=== PATIENT | female | born 2000 | race Caucasian/White ===

== ENCOUNTER 2025-04-29 10:23 | Emergency (ER) | payer MEDICAID, SELFPAY ==
[2025-04-29 10:35] VITALS: BP 121/79; PULSE 65; RESP 18; TEMP 36.7; O2SAT 98; BMI 21.1
--- NOTE | 2025-04-29 11:18 | ED_ITS ---
HPI - General Adult General Date Seen: 04/29/25 Chief complaint: Dental/Oral/Mouth Injury/Pain Stated complaint: Nausea, vomiting, sore throat Time Seen by Provider: 04/29/25 11:01 History of Present Illness HPI narrative: Patient is a 25-year-old young woman brought in by her mom today for evaluation of tooth pain, nausea and vomiting. Patient has been in treatment this year for alcohol, in September. She now lives in a sober house. She has a broken tooth in t he right lower jaw which has given her trouble in the past, has been bothering her for the past month or so. Over the past couple of days the pain has gotten worse. She has also developed vomiting over the past couple of days. She is not certain whether that is related to the tooth pain or a separate issue. She does not have abdominal pain. She remains sober, she has Zofran which was prescribed to her when she was in the treatment center and she took 1 yesterday. Her last emesis was yesterday but she says she has vomited 6 or 7 times in total and remains nauseated. No fevers, no facial swelling. No urinary symptoms. Related Data Home Medications ?Medication ?Instructions ?Recorded ?Confirmed clonidine HCl .ROUTE 04/29/25 Allergies Allergy/AdvReac Type Severity Reaction Status Date / Time No Known Drug Allergies Allergy Verified 04/29/25 10:35 Review of Systems Status of ROS: Reports: 10 or more systems reviewed and unremarkable except as noted in History and below PFSH PFS Social History Smoking Status: Never smoker Do you use any of these nicotine containing products: None Second hand tobacco smoke exposure: No How often do you have a drink containing alcohol: never AUDIT-C Alcohol total score: 0 Non-prescribed substance use: denies use Exam Narrative: Exam Narrative: Vital signs reviewed In general, alert, nontoxic Head: Normocephalic, atraumatic. Eyes: Sclera clear. Pupils equal and reactive. ENT: Mucous membranes dry. She has a tooth that is broken off basically at the gum line and the right lower jaw, there is no surrounding edema or fluctuance. No facial swelling or erythema. Airway patent. Neck: Supple without adenopathy. Heart: Regular rate and rhythm without murmur. Lungs: Clear. No increased work of breathing, crackles or wheezes. Abdomen: Soft, nontender to palpation. Extremities: Well perfused, pulses intact. No significant edema. Neurologic: Alert, conversant. Speech fluent, face symmetric. Moves all extremities equally. Skin: Warm, dry well perfused. Affect: Flat. Const: Vital Signs, click to edit/add: Vital Signs - 24 hr 04/29/25 10:35 Temperature 98.1 F Pulse Rate [Pulse Oximeter] 65 Respiratory Rate 18 Blood Pressure [Ri ght Upper Arm] 121/79 Pulse Oximetry 98 Oxygen Delivery Me thod Room Air Course Course ED Course: Patient presents with acute on chronic tooth pain, reviewed that we can certainly start an antibiotic for this but overall she needs to see a dentist. It sounds like getting a ride as well as knowing where to go have been leija rdships, but she does tell me that she has a list of dental clinics. Reviewed options in terms of local verses sliding scale clinics in the [facility]. Her mom lives in [place], and would be willing to take her to appointments. With regard to the nausea and vomiting, will check some basic labs, give some fluids and Reglan here, abdomen is benign, vital signs are normal. Symptoms may be related to tooth pain, other diagnostic considerations would be of viral gastroenteritis, pancreatitis, hepatitis, , doubt a surgical cause such as appendicitis in the absence any abdominal pain or tenderness. Labs reviewed. Urinalysis is notable for 4+ ketones, 1+ protein 1+ urine bilirubin 5-10 red cells but no white cells. test is negative. Blood work is most notable for significant elevations in her transaminases with an AST of 680, ALT of 875. This is most likely due related to her alcohol history, but I did add on a hepatitis panel and will get an ultrasound to make sure there are no other concerning findings that need to be addressed. In the meantime, she is feeling improved after fluids and Reglan. Lipase is normal, alk-phos is normal. Ultrasound read by Radiology is negative. I discussed all these findings with her. We made her a follow-up appointment in clinic to have her LFTs recheck. Reviewed reasons to return such as jaundice, uncontrolled vomiting, significant abdominal pain or high fevers, otherwise I prescribed amoxicillin, she will need dental follow-up. Advised against use of Tylenol until we ensure that her liver is improving. Vital Signs Vital signs: Initial Vital Signs Temperature 98.1 F 04/29/25 10:35 Temperature Source Temporal Artery Scan 04/29/25 10:35 Pulse Rate 65 04/29/25 10:35 Respiratory Rate 18 04/29/25 10:35 Blood Pressure 121/79 04/29/25 10:35 Blood Pressure Mean 93 04/29/25 10:35 Blood Pressure Position Sitting 04/29/25 10:35 Pulse Oximetry 98 04/29/25 10:35 Oxygen Delivery Method Room Air 04/29/25 10:35 Vital Signs Temperature 98.1 F 04/29/25 10:35 Pulse Rate 65 04/29/25 10:35 Respiratory Rate 18 04/29/25 10:35 Blood Pressure 121/79 04/29/25 10:35 Pulse Oximetry 98 04/29/25 10:35 Oxygen Delivery Method Room Air 04/29/25 10:35 Temperature 98.1 F 04/29/25 10:35 Pulse Rate 65 04/29/25 10:35 Respiratory Rate 18 04/29/25 10:35 Blood Pressure 121/79 04/29/25 10:35 Pulse Oximetry 98 04/29/25 10:35 Oxygen Delivery Method Room Air 04/29/25 10:35 Medications Administered Medications: Discontinued Medications Generic Name Dose Route Start Last Admin Trade Name Freq PRN Reason Stop Dose Admin Sodium Chloride 1,000 mls @ 1,000 mls/hr 04/29/25 11:15 04/29/25 13:07 0.9 % Sodium Chloride 1000 Ml IV 04/29/25 12:14 Infused .Q1H RENATO Infusion Metoclopramide HCl 10 mg/ 102 mls @ 306 mls/hr 04/29/25 11:12 04/29/25 13:08 Sodium Chloride IVPB 04/29/25 11:13 Infused ONCE ONE Infusion Medical Decision Making Lab Data Labs: Lab Results 04/29/25 Range/Units 11:41 WBC 6.59 (4.50-11.00) K/uL RBC 4.10 (4.00-5.20) m/uL Hgb 11.0 L (12.0-16.0) gm/dL Hct 34.4 (33.0-51.0) % MCV 84 (80-100) fL MCH 27 (26-34) pg MCHC 32 (32-36) gm/dL RDW Coeff of Conchita 16.1 H (11.5-15.5) % Plt Count 284 (140-440) K/uL Neut % (Auto) 80.0 H (42.0-72.0) % Lymph % (Auto) 15.0 L (20-44) % [place] % (Auto) 3.6 (0.0-11.0) % Eos % (Auto) 0.3 (0.0-7.0) % Baso % (Auto) 0.6 (0.0-3.0) % Neut # (Auto) 5.30 (1.7-7.0) K/uL Lymph # (Auto) 1.00 (0.90-2.90) K/uL [place] # (Auto) 0.20 (0.00-0.90) K/UL Eos # (Auto) 0.02 (0.00-0.50) K/uL Baso # (Auto) 0.04 (0.00-0.30) K/uL Abs Immat Gran (auto) 0.03 (0.00-0.30) K/uL Imm/Tot Granulo (auto) 0.5 % Sodium 135 (135-149) mmol/L Potassium 3.3 L (3.6-5.1) mmol/L Chloride 101 (96-114) mmol/L Carbon Dioxide 20 (20-32) mmol/L Anion Gap 14 (7-15) mEq/L BUN 6 (5-24) mg/dL Creatinine 0.4 L (0.5-1.5) mg/dL Estimated Creat Clear 185.66 Estimated GFR 141 ml/min Glucose 109 (60-115) mg/dL Calcium 8.3 L (8.4-10.6) mg/dL Total Bilirubin 0.6 (0.1-1.5) mg/dL Direct Bilirubin 0.3 (0.0-0.5) mg/dL AST 680 H (12-35) U/L ALT 875 H (4-35) U/L Alkaline Phosphatase 65 (40-150) U/L Total Protein 6.9 (6.0-8.3) g/dL Albumin 4.2 (3.3-5.0) g/dL Lipase 74 (23-300) U/L Urine Color Yellow (Yellow) Urine Appearance Clear (Clear) Urine pH 5.5 (5.0-8.5) Ur Specific Linch 1.020 (1.000-1.030) Urine Protein 1+ A (Negative) Urine Glucose (UA) Negative (Negative) Urine Ketones 4+ A (Negative) Urine Blood Trace-intact A (Negative) Urine Nitrite Negative (Negative) Urine Bilirubin 1+ A (Negative) Urine Urobilinogen 0.2 (0.2-1.0) Ur Leukocyte Esterase Negative (Negative) Urine RBC 5-10 A (0-2) Urine WBC 0-2 (0-5) Ur Squamous Epith Cells Few (None-Few) Urine Bacteria Few A (None) Urine HCG, Qual Negative (Negative) Discharge Plan Discharge Clinical Impression: Hepatitis, Toothache Patient Disposition: Home, Self-Care Condition: Improved Instructions: Toothache (ED), Transaminitis (ED) Additional Instructions: Nausea/vomiting: I think the symptoms are most likely due to some inflammation of your liver. There is viral testing for hepatitis which is pending, this is a send out lab and will take a couple of days to return. We will call you if anything needs to be addressed. Your ultrasound is normal. Most likely, these findings are related to your prior alcohol use, as alcohol is highly toxic to the liver. Continue to abstain from all alcohol. I would like it to be seen in a primary care clinic early next week to make sure that your liver enzymes are improving. If at any time use developed significant abdominal pain, high fevers, uncontrolled vomiting, yellowing of your skin or eyes, return to the emergency department. You can use Zofran if needed for nausea. Tooth pain: There is no sign of current infection. I will start you on an antibiotic, but as we discussed, dental follow-up will be extremely important to resolving this issue. If you note swelling in your face, redness along her jaw, or other worsening, return to the emergency department. You can use ibuprofen, ice as needed for pain. I would avoid Tylenol as this can also stress your liver. Prescriptions: No Action clonidine HCl .ROUTE Follow Up/Referrals: Provider,Not a Local [Primary Care Provider, Family Practice] Stand Alone Forms: [employer] Info Instructions
[2025-04-29] MEDS: METOCLOPRAMIDE HCL 10 MG in 0.9 % SODIUM CHLORIDE 100 ml 100 ML 306 MG IVPB (11:48)
[2025-04-29 11:57] LABS: Appearance Urine Clear (Clear)
[2025-04-29 12:03] LABS: Hematocrit* 34.4 % (33.0-51.0); Hemoglobin* 11.0 gm/dL (12.0-16.0); Immature Granulocytes Abs Auto 0.03 K/uL (0.00-0.30); Immature Granulocytes Pct Auto 0.5 %; Mean Corpuscular HGB Conc 32 gm/dL (32-36); Mean Corpuscular Hemoglobin 27 pg (26-34); Mean Corpuscular Volume 84 fL (80-100); RDW Coefficient of Variation % 16.1 % (11.5-15.5); Red Blood Count* 4.10 m/uL (4.00-5.20); White Blood Count* 6.59 K/uL (4.50-11.00)
[2025-04-29 12:09] LABS: Lymphocytes Absolute Auto 1.00 K/uL (0.90-2.90); Slide Review Reflex No
[2025-04-29 12:17] LABS: Albumin* 4.2 g/dL (3.3-5.0); Chloride* 101 mmol/L (96-114)
[2025-04-29 12:18] LABS: Potassium* 3.3 mmol/L (3.6-5.1)
[2025-04-29 12:20] LABS: Aspartate Amino Transferase* 680 U/L (12-35); Blood Urea Nitrogen* 6 mg/dL (5-24); Calcium* 8.3 mg/dL (8.4-10.6); Carbon Dioxide* 20 mmol/L (20-32); Creatinine* 0.4 mg/dL (0.5-1.5); Est. Creatinine Clearance* 185.66; Estimated Glomerular Filt Rate 141 ml/min; Glucose* 109 mg/dL (60-115); Total Protein* 6.9 g/dL (6.0-8.3)
[2025-04-29 12:21] LABS: Alkaline Phosphatase* 65 U/L (40-150); Bilirubin Direct* 0.3 mg/dL (0.0-0.5); Bilirubin Total* 0.6 mg/dL (0.1-1.5)
[2025-04-29 12:28] LABS: Alanine Aminotransferase* 875 U/L (4-35)
--- NOTE | 2025-04-29 12:34 | CRLHL7_ITS ---
For Patients: As a result of the Century Cures Act, medical imaging exams and procedure reports are released immediately into your electronic medical record. You may view this report before your referring provider. If you have questions, please contact your health care provider. INDICATION: Vomiting, elevated transaminase TECHNIQUE: Ultrasound abdomen limited. Sonographic images of the right upper quadrant were obtained using chowdhury-scale and color Doppler images. COMPARISON: None FINDINGS: Liver: Normal in size and echotexture. No masses. No intrahepatic biliary dilatation. Gallbladder: No stones or sludge. Normal wall thickness. No pericholecystic fluid. Common bile duct: 2 mm. Pancreas: Normal. Right kidney: Normal in size. Normal echotexture and cortex. No masses, stones, or hydronephrosis. Vasculature: Proximal abdominal aorta and IVC are normal. IMPRESSION: Unremarkable right upper quadrant ultrasound. Dictated by Gurpreet Ron MD @ 04/29/2025 1:20:41 PM (Electronically Signed)
[2025-04-29 12:36] LABS: Anion Gap 14 mEq/L (7-15); Sodium* 135 mmol/L (135-149)
[2025-04-29 12:50] LABS: Ur HCG Qualitative* Negative (Negative)
== END 2025-04-29 13:42 | disposition home or self-care (01) ==
PROVIDERS: Emergency Provider Emergency Medicine
DX: K08.89 Other specified disorders of teeth and supporting structures (principal); K75.9 Inflammatory liver disease, unspecified
CPT/HCPCS: 36415; 76705; 80048; 80074; 80076; 81001; 81025; 83690; 85025; 87086; 96365; 99284; 99285; J2765; J7030

== ENCOUNTER 2025-05-04 14:10 | Outpatient (CLI) | payer MEDICAID, SELFPAY | END 2025-05-04 14:11 | disposition home or self-care (01) | PROVIDERS: PCP Family Medicine; Visit Provider Family Medicine | DX: R79.89 Other specified abnormal findings of blood chemistry (principal) | CPT/HCPCS: 80053; 80143; 86703; 86706; 86708; 86803; 87340 ==

== ENCOUNTER 2025-06-03 13:26 | Emergency (ER) | payer MEDICAID, SELFPAY ==
[2025-06-03 13:50] VITALS: BP 123/83; PULSE 78; RESP 18; TEMP 37.4; O2SAT 98
--- NOTE | 2025-06-03 14:40 | ED.GENADULT ---
HPI - General Adult General Time Seen by Provider: 14:40 <Fahad White MD - Last Filed: 06/03/25 14:40> Date Seen: 06/03/25 <Fahad White MD - Last Filed: 06/03/25 14:40> Chief complaint: Dental/Oral/Mouth Injury/Pain <Fahad White MD - Last Filed: 06/03/25 14:40> Stated complaint: Tooth pain <Fahad White MD - Last Filed: 06/03/25 14:40> Time Seen by Provider: 06/03/25 13:29 <Fahad White MD - Last Filed: 06/03/25 14:40> Source: patient <Fahad White MD - Last Filed: 06/03/25 14:40> patient <Octavio Jolely DO - Last Filed: 06/03/25 14:59> Mode of arrival: ambulatory <Fahad White MD - Last Filed: 06/03/25 14:40> ambulatory <Octavio Jolley DO - Last Filed: 06/03/25 14:59> Limitations: no limitations <Fahad White MD - Last Filed: 06/03/25 14:40> no limitations <Octavio Jolley DO - Last Filed: 06/03/25 14:59> History of Present Illness HPI narrative: Isamar is 25-year-old female with depression and anxiety, chronic anemia, history of previous alcoholism abnormal liver function test presents emerged department via private car and self with dental pain. <Fahad White MD - Last Filed: 06/03/25 14:40> Isamar is 25-year-old female with depression and anxiety, chronic anemia, history of previous alcoholism abnormal liver function test presents emerged department via private car and self with dental pain. She states she has been having dental pain for the past few days. Has been taking Advil at home without improvement in her symptoms. Is to number 28 that is causing her pain. She states the pain is on top of the tooth. This is the same pain she had back in April. Was given amoxicillin which she states improved her symptoms. She has been trying to get into the dentist was unable to get an appointment until next week. Denies fevers, chills, chest pain, shortness of breath, abdominal pain, diarrhea, constipation. No other concerns noted at this time <Octavio Jolley DO - Last Filed: 06/03/25 14:59> Related Data Home medications: Home Medications ?Medication ?Instructions ?Recorded ?Confirmed amoxicillin 500 mg capsule 500 mg PO TID 05/04/25 05/04/25 clonidine HCl 0.1 mg 0.1 mg PO QPM 05/04/25 05/04/25 tablet,extended release,12 hr naltrexone 50 mg tablet 100 mg PO DAILY 05/04/25 05/04/25 <Fahad White MD - Last Filed: 06/03/25 14:40> Allergies/adverse reactions: Allergies Allergy/AdvReac Type Severity Reaction Status Date / Time No Known Drug Allergies Allergy Verified 05/04/25 13:20 <Fahad White MD - Last Filed: 06/03/25 14:40> Review of Systems Status of ROS: Reports: 10 or more systems reviewed and unremarkable except as noted in History and below <Octavio Jolley DO - Last Filed: 06/03/25 14:59> [facility] Medical History: Medical History Drug abuse ?F19.10 - Other psychoactive substance abuse, uncomplicated (ICD-10) History of cardiac murmur ?Z86.79 - Personal history of other diseases of the circulatory system (ICD-10) <Fahad White MD - Last Filed: 06/03/25 14:40> Social History: Social History What is your current living situation?: I presently have a place to live Problems where you live: no known problems In the past 12 months, utilities in danger of being shut off: no In past 12 months, lack of transportation kept you from medical appts, meetings, work, or getting things needed for daily living: yes In the past 12 mos, have been you worried that your food would run out before you had money to buy more?: sometimes true In the past 12 mos, the food you bought just didn't last and you didn't have money to buy more?: sometimes true Smoking Status: Never smoker Do you use any of these nicotine containing products: None Second hand tobacco smoke exposure: No How often do you have a drink containing alcohol: never AUDIT-C Alcohol total score: 0 Non-prescribed substance use: denies use How often does anyone, including family, friends and others, physically hurt you: never How often does anyone, including family, friends and others, insult or talk down to you: never How often does anyone, including family, friends and others, threaten you with harm: never How often does anyone, including family, friends and others, scream or curse at you: never Health Related Social Needs: food insecurity (Z59.41) and transportation insecurity (Z59.82) <Fahad White MD - Last Filed: 06/03/25 14:40> Exam Narrative: Exam Narrative: Const: Well-nourished, Well-developed, in mild distress Eyes: PERRL, no conjunctival injection, and symmetrical lids HENT: Atraumatic external nose and ears. Moist mucous membranes. Poor dentition. Multiple cavities. Does appear to have a cavity on the tooth in question. Mild tenderness noted around the gums. No signs of abscess. MSK:Extremities w/o deformity, Normal Active ROM Skin: Warm, Dry. No rashes or lesions. Neuro: Normal Muscle tone, No focal neurological deficits. Psych: Awake, Alert, & Oriented x3. Appropriate mood and affect. <Octavio Jolley DO - Last Filed: 06/03/25 14:59> Const: Vital Signs, click to edit/add: Vital Signs - 24 hr 06/03/25 13:50 Temperature 99.3 F Pulse Rate [Pulse Oximeter] 78 Respiratory Rate 18 Blood Pressure [Ri ght Upper Arm] 123/83 Pulse Oximetry 98 Oxygen Delivery Me thod Room Air <Fahad White MD - Last Filed: 06/03/25 14:40> Vital Signs, click to edit/add: Vital Signs - 24 hr 06/03/25 13:50 Temperature 99.3 F Pulse Rate [Pulse Oximeter] 78 Respiratory Rate 18 Blood Pressure [Ri ght Upper Arm] 123/83 Pulse Oximetry 98 Oxygen Delivery Me thod Room Air <Octavio Jolley DO - Last Filed: 06/03/25 14:59> Course Vital Signs Vital signs: Initial Vital Signs Temperature 99.3 F 06/03/25 13:50 Temperature Source Temporal Artery Scan 06/03/25 13:50 Pulse Rate 78 06/03/25 13:50 Respiratory Rate 18 06/03/25 13:50 Blood Pressure 123/83 06/03/25 13:50 Blood Pressure Mean 96 06/03/25 13:50 Pulse Oximetry 98 06/03/25 13:50 Oxygen Delivery Method Room Air 06/03/25 13:50 Vital Signs Temperature 99.3 F 06/03/25 13:50 Pulse Rate 78 06/03/25 13:50 Respiratory Rate 18 06/03/25 13:50 Blood Pressure 123/83 06/03/25 13:50 Pulse Oximetry 98 06/03/25 13:50 Oxygen Delivery Method Room Air 06/03/25 13:50 Temperature 99.3 F 06/03/25 13:50 Pulse Rate 78 06/03/25 13:50 Respiratory Rate 18 06/03/25 13:50 Blood Pressure 123/83 06/03/25 13:50 Pulse Oximetry 98 06/03/25 13:50 Oxygen Delivery Method Room Air 06/03/25 13:50 <Fahad White MD - Last Filed: 06/03/25 14:40> Initial Vital Signs Temperature 99.3 F 06/03/25 13:50 Temperature Source Temporal Artery Scan 06/03/25 13:50 Pulse Rate 78 06/03/25 13:50 Respiratory Rate 18 06/03/25 13:50 Blood Pressure 123/83 06/03/25 13:50 Blood Pressure Mean 96 06/03/25 13:50 Pulse Oximetry 98 06/03/25 13:50 Oxygen Delivery Method Room Air 06/03/25 13:50 Vital Signs Temperature 99.3 F 06/03/25 13:50 Pulse Rate 78 06/03/25 13:50 Respiratory Rate 18 06/03/25 13:50 Blood Pressure 123/83 06/03/25 13:50 Pulse Oximetry 98 06/03/25 13:50 Oxygen Delivery Method Room Air 06/03/25 13:50 Temperature 99.3 F 06/03/25 13:50 Pulse Rate 78 06/03/25 13:50 Respiratory Rate 18 06/03/25 13:50 Blood Pressure 123/83 06/03/25 13:50 Pulse Oximetry 98 06/03/25 13:50 Oxygen Delivery Method Room Air 06/03/25 13:50 <Octavio Jolley DO - Last Filed: 06/03/25 14:59> Medical Decision Making MDM Narrative Medical decision making narrative: Patient is a 25-year-old female presenting for tooth pain. She appears to have a cavity under to impression. This appears to be 28 but hard to say definitively due to poor dentition and other missing teeth. Considering amoxicillin helped slightly vaccine symptoms before will prescribe amoxicillin again. Do not believe further workup is necessary. She will be discharged. Amoxicillin prescribed via [facility]eds <Octavio Jolley DO - Last Filed: 06/03/25 14:59> Discharge Plan Discharge Clinical Impression: Dental caries <Fahad White MD - Last Filed: 06/03/25 14:40> Patient Disposition: Home, Self-Care <Fahad White MD - Last Filed: 06/03/25 14:40> Condition: Stable <Fahad White MD - Last Filed: 06/03/25 14:40> Instructions: Tooth Extraction (DC) <Fahad White MD - Last Filed: 06/03/25 14:40> Additional Instructions: The tooth that is causing a pain appears to have a large cavity. You need to speak to your dentist about getting this fixed or needing the tooth removed. Take Tylenol and ibuprofen as needed for pain. Return to emergency department for new or worsening symptoms. Take amoxicillin as directed. <Fahad White MD - Last Filed: 06/03/25 14:40> Prescriptions: No Action clonidine HCl 0.1 mg tablet extended release 12 hr 0.1 mg PO QPM amoxicillin 500 mg capsule 500 mg PO TID naltrexone 50 mg tablet 100 mg PO DAILY <Fahad White MD - Last Filed: 06/03/25 14:40> Follow Up/Referrals: Monroe Trujillo MD [Primary Care Provider, Family Practice] <Fahad White MD - Last Filed: 06/03/25 14:40> Stand Alone Forms: [employer] Info Instructions <Fahad White MD - Last Filed: 06/03/25 14:40>
== END 2025-06-03 15:13 | disposition home or self-care (01) ==
PROVIDERS: Emergency Provider Student in an Organized Health Care Education/Training Program; PCP Family Medicine
DX: K08.89 Other specified disorders of teeth and supporting structures (principal)
CPT/HCPCS: 99283